=== PATIENT | female | born 1975 | race Asian ===

== ENCOUNTER 2021-11-15 20:59 | Emergency (ER) | payer OTHER ==
[~2021-11-15] VITALS: Ht 152.4 cm; Wt 63.5 kg
[2021-11-15 22:33] LABS: BASOPHILS ABSOLUTE AUTO 0.03 K/mm3 (0.00-0.23); BASOPHILS PERCENT AUTO 0 % (0-2); EOSINOPHILS ABSOLUTE AUTO 0.03 K/mm3 (0.00-0.68); EOSINOPHILS PERCENT AUTO 0 % (0-6); Hematocrit 34.7 % (33.0-51.0); Hemoglobin 11.1 g/dL (11.5-16.0); IMMATURE GRAN ABSOLUTE AUTO 0.02 K/mm3 (0.00-0.10); IMMATURE GRAN PERCENT AUTO 0 % (0-1); LYMPHOCYTES ABSOLUTE AUTO 1.68 K/mm3 (0.84-5.20); LYMPHOCYTES PERCENT AUTO 21 % (21-46); MONOCYTES ABSOLUTE AUTO 0.57 K/mm3 (0.16-1.47); MONOCYTES PERCENT AUTO 7 % (4-13); Mean Corpuscular HGB 28.8 pg (26.0-34.0); Mean Corpuscular Volume 90 fL (80-100); Mean Platelet Volume 10.2 fL (9.1-12.4); NEUTROPHILS ABSOLUTE AUTO 5.52 K/mm3 (1.96-9.15); NEUTROPHILS PERCENT AUTO 70 % (41-73); Platelet Count 313 K/mm3 (150-400); RDW Standard Deviation 46.5 fL (35.1-46.3); Red Blood Cell Count 3.85 M/mm3 (3.80-5.20); White Blood Cell Count 7.85 K/mm3 (4.00-11.30)
[2021-11-15 22:52] LABS: Albumin/Globulin Ratio 1.1 (0.8-1.8); Bilirubin, Total 0.3 mg/dL (0.1-1.0); Bun/Creatinine Ratio 10.9 (12.0-20.0); Calcium, Blood 8.9 mg/dL (8.5-10.1); Creatinine, Blood 0.64 mg/dL (0.40-1.00); Globulin, Blood 3.5 g/dL (2.2-4.0); Potassium, Blood 3.6 mmol/L (3.5-5.5); Total Protein, Blood 7.5 g/dL (6.4-8.2)
== END 2021-11-16 00:47 | disposition home or self-care (01) ==
LOC: ER 20:59
PROVIDERS: Student in an Organized Health Care Education/Training Program
DX: R51.9 Headache, unspecified (principal); R07.9 Chest pain, unspecified; R20.8 Other disturbances of skin sensation; I10 Essential (primary) hypertension; Z60.9 Problem related to social environment, unspecified
CPT/HCPCS: 70450; 71045; 80053; 84484; 85025; 93005; 93010; J1200; J1885; J2765; J7030

== ENCOUNTER → 2022-12-19 | Outpatient (CLI) | payer OTHER ==
[2022-12-19 19:51] LABS: BASOPHILS ABSOLUTE AUTO 0.03 K/mm3 (0.00-0.23); BASOPHILS PERCENT AUTO 0 % (0-2); EOSINOPHILS ABSOLUTE AUTO 0.03 K/mm3 (0.00-0.68); EOSINOPHILS PERCENT AUTO 0 % (0-6); Hematocrit 37.3 % (33.0-51.0); Hemoglobin 12.5 g/dL (11.5-16.0); IMMATURE GRAN ABSOLUTE AUTO 0.04 K/mm3 (0.00-0.10); IMMATURE GRAN PERCENT AUTO 0 % (0-1); LYMPHOCYTES ABSOLUTE AUTO 1.85 K/mm3 (0.84-5.20); LYMPHOCYTES PERCENT AUTO 18 % (21-46); MONOCYTES ABSOLUTE AUTO 0.77 K/mm3 (0.16-1.47); MONOCYTES PERCENT AUTO 7 % (4-13); Mean Corpuscular HGB 29.7 pg (26.0-34.0); Mean Corpuscular HGB Conc 33.5 g/dL (31.5-36.5); Mean Corpuscular Volume 89 fL (80-100); Mean Platelet Volume 10.2 fL (9.1-12.4); NEUTROPHILS ABSOLUTE AUTO 7.74 K/mm3 (1.96-9.15); NEUTROPHILS PERCENT AUTO 74 % (41-73); Platelet Count 347 K/mm3 (150-400); RDW Coefficient Variation 13.8 % (11.7-14.2); RDW Standard Deviation 44.9 fL (35.1-46.3); Red Blood Cell Count 4.21 M/mm3 (3.80-5.20); White Blood Cell Count 10.46 K/mm3 (4.00-11.30)
[2022-12-19 20:09] LABS: Albumin/Globulin Ratio 0.9 (0.8-1.8); Bilirubin, Total 0.4 mg/dL (0.1-1.0); Bun/Creatinine Ratio 8.1 (12.0-20.0); Calcium, Blood 9.4 mg/dL (8.5-10.1); Creatinine, Blood 0.75 mg/dL (0.40-1.00); Globulin, Blood 4.3 g/dL (2.2-4.0); Potassium, Blood 4.1 mmol/L (3.5-5.5); Total Protein, Blood 8.3 g/dL (6.4-8.2)
== END ==
LOC: LAB 19:27 → LAB SHORT 19:27
PROVIDERS: Physician Assistant
DX: R11.10 Vomiting, unspecified (principal)
CPT/HCPCS: 80053; 83690; 85025

== ENCOUNTER 2023-02-07 15:58 | Inpatient (IN) | payer BC ==
[~2023-02-07] VITALS: Ht 170.2 cm; Wt 65.5 kg
[2023-02-07] MEDS ORDERED: PROP10 PO (16:07)
[2023-02-07] MEDS ORDERED: AMLODIPINE BESYL5 MG PO (16:07)
[2023-02-07 16:28] LABS: BASOPHILS ABSOLUTE AUTO 0.02 K/mm3 (0.00-0.23); BASOPHILS PERCENT AUTO 0 % (0-2); EOSINOPHILS ABSOLUTE AUTO 0.03 K/mm3 (0.00-0.68); EOSINOPHILS PERCENT AUTO 0 % (0-6); Hematocrit 33.6 % (33.0-51.0); Hemoglobin 12.3 g/dL (11.5-16.0); IMMATURE GRAN ABSOLUTE AUTO 0.11 K/mm3 (0.00-0.10); IMMATURE GRAN PERCENT AUTO 1 % (0-1); LYMPHOCYTES ABSOLUTE AUTO 2.61 K/mm3 (0.84-5.20); LYMPHOCYTES PERCENT AUTO 18 % (21-46); MONOCYTES PERCENT AUTO 9 % (4-13); Mean Corpuscular HGB 29.3 pg (26.0-34.0); Mean Corpuscular HGB Conc 36.6 g/dL (31.5-36.5); Mean Corpuscular Volume 80 fL (80-100); Mean Platelet Volume 9.3 fL (9.1-12.4); NEUTROPHILS PERCENT AUTO 72 % (41-73); Platelet Count 436 K/mm3 (150-400); RDW Coefficient Variation 12.3 % (11.7-14.2); RDW Standard Deviation 35.5 fL (35.1-46.3); White Blood Cell Count 14.67 K/mm3 (4.00-11.30)
[2023-02-07 17:12] LABS: Albumin, Blood 4.4 g/dL (3.4-5.0); Albumin/Globulin Ratio 1.2 (0.8-1.8); Bilirubin, Total 0.7 mg/dL (0.1-1.0); Calcium, Blood 8.8 mg/dL (8.5-10.1); Creatinine, Blood 0.45 mg/dL (0.40-1.00); Globulin, Blood 3.7 g/dL (2.2-4.0); Total Protein, Blood 8.1 g/dL (6.4-8.2)
[2023-02-07 18:45] LABS: Base Excess Venous -4.2 mmol/L; Bicarbonate Venous 21.9 mmol/L (24.0-30.0); PCO2 Venous 27.2 mmHg (38-42); pH Blood Venous 7.46 (7.34-7.37)
[2023-02-07 18:45] LABS: Source, Urine Clean Catch
[2023-02-07 18:52] LABS: Appearance, Urine Clear (Clear); Bilirubin, Urine Neg (Neg); Blood, Urine Neg (Neg); Glucose Qualitative, Urine Neg (Neg); Ketones, Urine 2+ (Neg); Leukocyte Esterase, Urine Neg (Neg); Nitrite, Urine Neg (Neg); Protein, Urine Neg (Neg); Urobilinogen, Urine NORM (Normal)
[2023-02-07 18:55] LABS: Color, Urine Pale Yellow (P-Yellow)
[2023-02-07 19:14] LABS: Thyroid Stimulating Hormone 0.616 uIU/mL (0.360-4.800)
[2023-02-07 21:00] VITALS: BP 129/81
[2023-02-07 21:15] VITALS: BP 134/82
[2023-02-07 22:00] VITALS: BP 122/74
[2023-02-07 22:45] VITALS: BP 145/94
[2023-02-07 23:00] VITALS: BP 132/87
[2023-02-07 23:30] VITALS: BP 148/91
--- NOTE | 2023-02-07 23:30 | NUR ---
ARRIVAL TO ICU PT ARRIVED TO ICU 3 AT 2044 VIA ED BED. SHE WAS ABLE TO AMBULATE WITH MINIMAL ASSISTANCE OVER TO ICU BED. SHE IS BEING ADMITTED FOR HYPONATREMIA. SHE IS A/O X4 AND ABLE TO MAKE HER NEEDS KNOWN; VERY PLESENT. SPO2 >98% ON RA; NO C/O DYSPNEA. HR 60-70'S, NO C/O CHEST PAIN. SBP 120-150'S. MILD NAUSEA NOTED, NO EMESIS. SHE CAN AMBULATE TO THE TOILET WITH MINIMAL ASSISTANCE, ONE PERSON STANDBY FOR CORD MANAGEMENT. KCL INFUSING WHEN SHE ARRIVED AND SHE C/O PIV BURNING, LT WRIST PIV PAINFUL WHEN FLUSHED, THIS IV PULLED AND POWERGLIDE PLACED BY CHARGE NURSE. 3% NS INFUSING AT 20ML/HR. SEE ADMISSION ASSESSMENT FOR FULL ASSESSMENT.
[2023-02-08] VITALS (18 sets, daily range): BP systolic 112–150; BP diastolic 66–124
[2023-02-08 01:27] LABS: Potassium, Blood 3.5 mmol/L (3.5-5.5)
--- NOTE | 2023-02-08 01:39 | NUR ---
UPDATE 0100 SODIUM LAB DRAW RESULTED AT 135; LAST SODIUM BLOOD DRAW WAS AT 1836 AND RESULTED A SODIUM OF 118. CALL MADE TO DR MARTINES REGARDING THIS QUICK CHANGE IN SODIUM. NEW ORDERS TO STOP 3% SALINE, INFUSION STOPPED AT 0135. KCL ALSO DONE INFUSING. PT IS SALINE LOCKED. PT HAS URINATED SEVERAL TIMES BUT HAS NOT HAD ANY PO FLUID. VITALS STABLE WITH HR 60'S, BP STABLE, SPO2 100% ON RA. PT SLEEPING IN BED AND COMFORTABLE, SHE WAKES EASILY TO VERBAL STIMULI. SHE IS ASYMPTOMATIC. NEXT LAB DRAW AT 0500.
[2023-02-08 05:24] LABS: BASOPHILS ABSOLUTE AUTO 0.01 K/mm3 (0.00-0.23); BASOPHILS PERCENT AUTO 0 % (0-2); EOSINOPHILS ABSOLUTE AUTO 0.03 K/mm3 (0.00-0.68); EOSINOPHILS PERCENT AUTO 0 % (0-6); Hematocrit 31.6 % (33.0-51.0); Hemoglobin 11.1 g/dL (11.5-16.0); IMMATURE GRAN ABSOLUTE AUTO 0.04 K/mm3 (0.00-0.10); IMMATURE GRAN PERCENT AUTO 1 % (0-1); LYMPHOCYTES PERCENT AUTO 23 % (21-46); MONOCYTES ABSOLUTE AUTO 1.06 K/mm3 (0.16-1.47); MONOCYTES PERCENT AUTO 13 % (4-13); Mean Corpuscular HGB 29.4 pg (26.0-34.0); Mean Corpuscular HGB Conc 35.1 g/dL (31.5-36.5); Mean Corpuscular Volume 84 fL (80-100); Mean Platelet Volume 9.6 fL (9.1-12.4); NEUTROPHILS ABSOLUTE AUTO 5.37 K/mm3 (1.96-9.15); NEUTROPHILS PERCENT AUTO 64 % (41-73); Platelet Count 331 K/mm3 (150-400); RDW Coefficient Variation 12.8 % (11.7-14.2); RDW Standard Deviation 38.6 fL (35.1-46.3); Red Blood Cell Count 3.77 M/mm3 (3.80-5.20); White Blood Cell Count 8.41 K/mm3 (4.00-11.30)
[2023-02-08 05:43] LABS: Albumin, Blood 3.6 g/dL (3.4-5.0); Albumin/Globulin Ratio 1.1 (0.8-1.8); Bilirubin, Total 0.5 mg/dL (0.1-1.0); Bun/Creatinine Ratio 8.6 (12.0-20.0); Calcium, Blood 8.1 mg/dL (8.5-10.1); Creatinine, Blood 0.58 mg/dL (0.40-1.00); Globulin, Blood 3.2 g/dL (2.2-4.0); Potassium, Blood 3.2 mmol/L (3.5-5.5); Total Protein, Blood 6.8 g/dL (6.4-8.2)
--- NOTE | 2023-02-08 06:30 | NUR ---
END OF SHIFT SUMMARY NO ACUTE EVENTS OVER NIGHT. SHE WAS ABLE TO SLEEP A FEW HOURS LAST NIGHT. CONT TO BE A/O X4 AND ABLE TO MAKE HER NEEDS KNOWN. SPO2 >98% ON RA, NO C/O DYSPNEA. AFEBILE. HR 50-60'S, NO C/O CHEST PAIN. BP STABLE. NO SEIZURE ACTIVITY. SHE CAN INDEPENDENTLY AMBULATE TO BATHROOM IN ROOM. SALINE LOCKED RIGHT NOW. CALL MADE TO DR BOBBI MCCLURE 0500 POTASSIUM LAB RESULT OF 3.3; NEW ORDERS PROVIDED. WILL REPORT TO AM RN WHEN AVIALBLE.
--- NOTE | 2023-02-08 09:00 | NUR ---
INITIAL ASSESSMENT PATIENT ALERT AND ORIENTED X 4, AFEBRILE. PATIENT DENIES PAIN. PATIENT SATTING 90% AND GREATER ON RA. PATIENT IN SR, HR IN THE 80S. SBP IN THE 140S. SCHEDULED AM BP MED GIVEN. PATIENT DENIES NAUSEA. LAST BM DOCUMENTED ON 02/06. WNL. SKIN APPEARS C/D/I. IV FLUSHED AND SALINE LOCKED. 40 MEQ KCL INFUSING FOR POTASSIUM OF 3.2 THIS AM. LAST SODIUM 135. BED LOW, CALL LIGHT IN REACH. WILL CONTINUE TO MONITOR PATIENT FREQUENTLY THROUGHOUT SHIFT.
--- NOTE | 2023-02-08 09:00 | NUR ---
IGNITION RISK ASSESSED. HOURLY ROUNDING BEING PERFORMED. PATIENT STATES SHE DOES NOT SMOKE AND DOES NOT HAVE A DBA DEVELOPER.
--- NOTE | 2023-02-08 11:29 | NUR ---
UPDATE GIVEN TO PATIENT'S AFTER ASKING FOR APPROVAL FROM PATIENT.
--- NOTE | 2023-02-08 11:35 | NUR ---
DR. RUANO IN TO SEE PATIENT.
--- NOTE | 2023-02-08 12:30 | NUR ---
PATIENT AFEBRILE. HR IN THE 70S. SBP IN THE 120S. PATIENT REMAINS SATTING 90% AND GREATER ON RA. D5 INFUSING AT 100 MLS/ HOUR. NO OTHER ACUTE CHANGES TO NOTE ON AT THIS TIME. NO COMPLAINTS AT THIS TIME. WILL CONTINUE TO MONITOR.
--- NOTE | 2023-02-08 15:25 | NUR ---
CALLED TO GIVE ASSUMING NURSE REPORT. WAITING FOR CALL BACK.
--- NOTE | 2023-02-08 15:41 | NUR ---
SHIFT SUMMARY PATIENT HAS REMAINED ALERT AND ORIENTED X 4, AFEBRILE. PATIENT GIVEN OT GI COCKTAIL FOR COMPLAINT OF HEART BURN. NO OTHER COMPLAINTS OF PAIN OR DISCOMFORT THIS SHIFT. PATIENT HAS REMAINED SATTING 90% AND GREATER ON RA. LUNGS HAVE REMAINED CLEAR. PATIENT HAS REMAINED SR, HR 70S TO 90S. SBP 120S TO 140S. PATIENT HAD NO COMPLAINTS OF PAIN THIS SHIFT. 1 BM THIS SHIFT. PATIENT TOLERATED FOOD WELL. WNL. SKIN WNL. PATIENT REPOSITIONING SELF IN BED. D5 WITH KCL INFUSING AT 125 MLS/ HOUR X 2 L. PATIENT HAD 40 MEQ KCL REPLACEMENT THIS AM. PATIENT HAD SHOWER THIS SHIFT. DR. RUANO CONSULTED AND CAME TO SEE PATIENT THIS SHIFT. PATIENT TO BE TRANSFERRED TO MEDICAL FLOOR, ROOM 359 SHORTLY.
--- NOTE | 2023-02-08 15:47 | NUR ---
CALLED TO GIVE REPORT. WAITING FOR ASSUMING NURSE TO CALL BACK.
--- NOTE | 2023-02-08 16:14 | NUR ---
PATIENT TRANSFERRED TO MEDICAL FLOOR. ALL BELONGINGS SENT WITH PATIENT. TRANSFER COMPLETE.
[2023-02-09 05:01] VITALS: BP 138/80
[2023-02-09 05:28] LABS: BASOPHILS ABSOLUTE AUTO 0.03 K/mm3 (0.00-0.23); BASOPHILS PERCENT AUTO 0 % (0-2); EOSINOPHILS ABSOLUTE AUTO 0.15 K/mm3 (0.00-0.68); EOSINOPHILS PERCENT AUTO 2 % (0-6); Hematocrit 32.2 % (33.0-51.0); Hemoglobin 10.9 g/dL (11.5-16.0); IMMATURE GRAN ABSOLUTE AUTO 0.04 K/mm3 (0.00-0.10); IMMATURE GRAN PERCENT AUTO 1 % (0-1); LYMPHOCYTES ABSOLUTE AUTO 2.24 K/mm3 (0.84-5.20); LYMPHOCYTES PERCENT AUTO 30 % (21-46); MONOCYTES ABSOLUTE AUTO 0.93 K/mm3 (0.16-1.47); MONOCYTES PERCENT AUTO 13 % (4-13); Mean Corpuscular HGB 29.5 pg (26.0-34.0); Mean Corpuscular HGB Conc 33.9 g/dL (31.5-36.5); Mean Corpuscular Volume 87 fL (80-100); Mean Platelet Volume 10.2 fL (9.1-12.4); NEUTROPHILS ABSOLUTE AUTO 4.04 K/mm3 (1.96-9.15); NEUTROPHILS PERCENT AUTO 55 % (41-73); Platelet Count 270 K/mm3 (150-400); RDW Coefficient Variation 13.5 % (11.7-14.2); RDW Standard Deviation 42.5 fL (35.1-46.3); White Blood Cell Count 7.43 K/mm3 (4.00-11.30)
--- NOTE | 2023-02-09 05:31 | NUR ---
SHIFT SUMMERY, PT RESTING IN BED AND WAS AT START OF SHIFT PT WATCHING TV. IV SOUNDING OCCUSION PT HAD IV TO HER RIGHT AC. PT BENT ARM A FEW MORE TIMES THEN STATED SHE DID NOT WANT THE IVF DUE TO THE DEXTROSE, SHE WAS VERY CONCERNED IT WOULD MAKE HER FAT BECOUSE OF THE SUGAR, TOLD PT IT HAD VERY LITTLE SUGAR IN BAG, PT STILL VERY CONCERNED PT C/O PAIN TO IV TO RIGHT AC CHANGED SITES THINKING THE POTASSIUM MIGHT BE BURNING, SITE WAS NOT RED NOT SWOLEN NOT IRRITATED LOOKING, MOVED TO POWER GLIDE TO LEFT ARM. PT CALLED BACK LATTER STATED IV WAS PAINFULL AND SHE WUOLD NOT BE ABLE TO SLEEP WITH IT IN. IV REMOVED TIP INTACT. SUGESTED WARM PACK FOR PAIN PT REFUSED. LAB CAME AND WNTED A LAB DRAWN PT NOT HAPPY ABOUT MORE LABS EVEN DRAWN FROM POWER GLIDE. PT REATING MOST OF NIGHT LABS DRAWN FROM POWER GLIDE. CALL LIGHT IN REACH. FIRE SAFETY REVIEWED.
[2023-02-09 05:49] LABS: Albumin, Blood 3.2 g/dL (3.4-5.0); Anion Gap 4 mmol/L (6-16); Blood Urea Nitrogen 4 mg/dL (8-24); Bun/Creatinine Ratio 6.1 (12.0-20.0); CO2, Blood 24 mmol/L (21-32); Chloride, Blood 108 mmol/L (98-108); Creatinine, Blood 0.65 mg/dL (0.40-1.00); Glomerular Filtration Rate 110 (60-); Glucose, Blood 104 mg/dL (70-99); Magnesium, Blood 2.2 mg/dL (1.6-2.4); Phosphorus, Blood 2.7 mg/dL (2.5-4.9); Potassium, Blood 4.9 mmol/L (3.5-5.5); Sodium, Blood 136 mmol/L (136-145)
[2023-02-09 07:49] VITALS: BP 144/90
[2023-02-09] MEDS ORDERED: AMLO5 PO (15:56)
--- NOTE | 2023-02-09 16:52 | NUR ---
SHIFT/DISCHARGE SUMMARY: Pt remained A&O x3 this shift. VSS, denies pain. Ambulating independently. Tolerating diet. Voiding without difficulty. All discharge instructions reviewed with hemodialysis charge nurseCATALINA Love. Return verbal understanding provided. Pt to lobby.
== END 2023-02-09 16:10 | disposition home or self-care (01) | DRG 641 ==
LOC: ER 15:58 → MEDS 18:49 → PCU 18:49 → MEDS 18:49 → ICUE 18:49 → MEDS 02-08 16:26
PROVIDERS: Hospitalist; Internal Medicine; Nurse Practitioner Acute Care; Physician Assistant; Student in an Organized Health Care Education/Training Program; ADMIT Hospitalist
DX: E87.1 Hypo-osmolality and hyponatremia (principal); E87.6 Hypokalemia; I10 Essential (primary) hypertension; F41.9 Anxiety disorder, unspecified; D72.828 Other elevated white blood cell count; K21.9 Gastro-esophageal reflux disease without esophagitis; F41.0 Panic disorder [episodic paroxysmal anxiety]; Z79.899 Other long term (current) drug therapy
CPT/HCPCS: 71046; 74177; 80053; 80069; 81003; 82803; 83690; 83735; 83930; 83935; 84100; 84132; 84295; 84300; 84443; 84484; 85025; 93005; 93010; 96374-59; 96375; 99285-25; A9270; C1751; J1650; J1885; J2405; J3480; J7030; J7050; J7060; J7070; Q9967

== ENCOUNTER → 2023-04-29 | Outpatient (CLI) | payer BC ==
[~2023-04-29] MED LIST: AMLO5 PO; AMLODIPINE BESYL5 MG PO; PROP10 PO
[2023-04-29 14:12] LABS: Sodium, Urine 81 mmol/L (20-110)
== END | disposition home or self-care (01) ==
LOC: LAB SHORT 08:30 → LAB 08:30
PROVIDERS: Physician Assistant
DX: E87.1 Hypo-osmolality and hyponatremia (principal)
CPT/HCPCS: 81050; 84300

== ENCOUNTER 2023-05-23 22:42 | Emergency (ER) | payer BC ==
[~2023-05-23] VITALS: Ht 152.4 cm; Wt 63.5 kg
[2023-05-23 23:09] LABS: BASOPHILS ABSOLUTE AUTO 0.01 K/mm3 (0.00-0.23); BASOPHILS PERCENT AUTO 0 % (0-2); EOSINOPHILS ABSOLUTE AUTO 0.04 K/mm3 (0.00-0.68); EOSINOPHILS PERCENT AUTO 0 % (0-6); Hemoglobin 11.7 g/dL (11.5-16.0); IMMATURE GRAN ABSOLUTE AUTO 0.02 K/mm3 (0.00-0.10); IMMATURE GRAN PERCENT AUTO 0 % (0-1); LYMPHOCYTES ABSOLUTE AUTO 1.98 K/mm3 (0.84-5.20); LYMPHOCYTES PERCENT AUTO 21 % (21-46); MONOCYTES ABSOLUTE AUTO 0.52 K/mm3 (0.16-1.47); MONOCYTES PERCENT AUTO 5 % (4-13); Mean Corpuscular HGB 28.2 pg (26.0-34.0); Mean Corpuscular HGB Conc 34.4 g/dL (31.5-36.5); Mean Corpuscular Volume 82 fL (80-100); Mean Platelet Volume 9.6 fL (9.1-12.4); NEUTROPHILS ABSOLUTE AUTO 7.07 K/mm3 (1.96-9.15); NEUTROPHILS PERCENT AUTO 73 % (41-73); Platelet Count 384 K/mm3 (150-400); RDW Coefficient Variation 14.3 % (11.7-14.2); RDW Standard Deviation 42.3 fL (35.1-46.3); Red Blood Cell Count 4.15 M/mm3 (3.80-5.20); White Blood Cell Count 9.64 K/mm3 (4.00-11.30)
[2023-05-23 23:31] LABS: Albumin, Blood 3.9 g/dL (3.4-5.0); Albumin/Globulin Ratio 0.9 (0.8-1.8); Bilirubin, Total 0.6 mg/dL (0.1-1.0); Bun/Creatinine Ratio 8.5 (12.0-20.0); Calcium, Blood 8.6 mg/dL (8.5-10.1); Creatinine, Blood 0.59 mg/dL (0.40-1.00); Globulin, Blood 4.5 g/dL (2.2-4.0); Potassium, Blood 3.3 mmol/L (3.5-5.5); Total Protein, Blood 8.4 g/dL (6.4-8.2)
[2023-05-24 00:43] LABS: Source, Urine Clean Catch
[2023-05-24 00:47] LABS: Bilirubin, Urine Neg (Neg); Blood, Urine Neg (Neg); Glucose Qualitative, Urine Neg (Neg); Ketones, Urine Neg (Neg); Leukocyte Esterase, Urine Neg (Neg); Nitrite, Urine Neg (Neg); Protein, Urine Neg (Neg); Urobilinogen, Urine NORM (Normal); pH, Urine 6.5 (5.0-8.0)
[2023-05-24 00:49] LABS: Appearance, Urine Clear (Clear); Color, Urine Yellow (P-Yellow)
[2023-05-24 01:03] LABS: U Amphetamine Screen Not Detected; U Barbituate Screen Not Detected; U Benzodiazapine Screen Not Detected; U Buprenorphine Screen Not Detected; U Cannabinoids Screen Not Detected; U Cocaine Screen Not Detected; U Methadone Screen Not Detected; U Methamphetamine Screen Not Detected; U Opiates Screen Not Detected; U Oxycodone Screen Not Detected; U Phencyclidine Screen Not Detected
[2023-05-24] MEDS ORDERED: ONDA4ODT MM (01:10)
[2023-05-24 01:37] VITALS: BP 142/82
== END 2023-05-24 01:36 | disposition home or self-care (01) ==
LOC: ER 22:42
PROVIDERS: Emergency Medicine
DX: R11.2 Nausea with vomiting, unspecified (principal); F41.9 Anxiety disorder, unspecified; Z79.899 Other long term (current) drug therapy
CPT/HCPCS: 80053; 81003; 81025; 83605; 83690; 83735; 85025; 96361; 96374; 96375; 99283-25; J1885; J2405; J7030

== ENCOUNTER 2024-05-22 06:58 | Observation (INO) | payer OTHER ==
[~2024-05-22] VITALS: Ht 152.4 cm; Wt 64.6 kg
[~2024-05-22 06:58] MED LIST changes: +ONDA4ODT MM
[2024-05-22] MEDS ORDERED: Ketorolac Tromethamine 30mg Vial IV ONE (07:25)
[2024-05-22] MEDS ORDERED: NS 1,000 ML IV SCH ×2 (07:25→09:30)
[2024-05-22] MEDS ORDERED: Ondansetron HCl 2 MG / ML 2ML Vial IV ONE (07:25)
[2024-05-22 07:58] LABS: BASOPHILS ABSOLUTE AUTO 0.01 K/mm3 (0.00-0.23); BASOPHILS PERCENT AUTO 0 % (0-2); EOSINOPHILS ABSOLUTE AUTO 0.01 K/mm3 (0.00-0.68); EOSINOPHILS PERCENT AUTO 0 % (0-6); Hematocrit 31.1 % (33.0-51.0); Hemoglobin 10.9 g/dL (11.5-16.0); IMMATURE GRAN ABSOLUTE AUTO 0.02 K/mm3 (0.00-0.10); IMMATURE GRAN PERCENT AUTO 0 % (0-1); LYMPHOCYTES ABSOLUTE AUTO 1.17 K/mm3 (0.84-5.20); LYMPHOCYTES PERCENT AUTO 20 % (21-46); MONOCYTES ABSOLUTE AUTO 0.39 K/mm3 (0.16-1.47); MONOCYTES PERCENT AUTO 7 % (4-13); Mean Corpuscular HGB 29.1 pg (26.0-34.0); Mean Corpuscular Volume 83 fL (80-100); Mean Platelet Volume 10.2 fL (9.1-12.4); NEUTROPHILS ABSOLUTE AUTO 4.22 K/mm3 (1.96-9.15); NEUTROPHILS PERCENT AUTO 73 % (41-73); Platelet Count 311 K/mm3 (150-400); RDW Coefficient Variation 13.2 % (11.7-14.2); RDW Standard Deviation 39.8 fL (35.1-46.3); Red Blood Cell Count 3.75 M/mm3 (3.80-5.20); White Blood Cell Count 5.82 K/mm3 (4.00-11.30)
[2024-05-22 08:26] LABS: Albumin, Blood 3.6 g/dL (3.4-5.0); Albumin/Globulin Ratio 0.9 (0.8-1.8); Bilirubin, Total 0.8 mg/dL (0.1-1.0); Bun/Creatinine Ratio 14.2 (12.0-20.0); Calcium, Blood 8.6 mg/dL (8.5-10.1); Creatinine, Blood 0.35 mg/dL (0.40-1.00); Globulin, Blood 3.8 g/dL (2.2-4.0); Total Protein, Blood 7.4 g/dL (6.4-8.2)
[2024-05-22 08:46] LABS: Influenza A, PCR NEGATIVE (NEGATIVE); Influenza B, PCR NEGATIVE (NEGATIVE); Resp Syncytial Virus, PCR NEGATIVE (NEGATIVE); SARS-Cov-2 (COVID-19) PCR, MMC NEGATIVE (NEGATIVE)
[2024-05-22 09:08] LABS: Source, Urine Clean Catch
[2024-05-22 09:27] LABS: Free Thyroxine 1.17 ng/dL (0.70-1.60)
[2024-05-22 09:27] LABS: Appearance, Urine Clear (Clear); Bilirubin, Urine Neg (Neg); Blood, Urine Neg (Neg); Glucose Qualitative, Urine Neg (Neg); Ketones, Urine Neg (Neg); Leukocyte Esterase, Urine Neg (Neg); Nitrite, Urine Neg (Neg); Protein, Urine Neg (Neg); Urobilinogen, Urine NORM (Normal)
[2024-05-22 09:28] LABS: Color, Urine Pale Yellow (P-Yellow)
[2024-05-22 09:29] LABS: Thyroid Stimulating Hormone 0.697 uIU/mL (0.360-4.800)
[2024-05-22] MEDS ORDERED: FLU VACC TS2024-25(6MOS UP)/PF 45 MCG/0.5 ML SYRINGE IM SCH (09:30)
[2024-05-22] MEDS ORDERED: Acetaminophen 325 MG TABLET PO PRN (11:30)
[2024-05-22] MEDS ORDERED: Ondansetron HCl 2 MG / ML 2ML Vial IV PRN (11:55)
[2024-05-22 14:40] VITALS: BP 151/80
--- NOTE | 2024-05-22 19:32 | NUR ---
ARRIVAL TO [address] BROUGHT UP TO THE FLOOR JUST BEFORE SHIFT CHANGE ON A GURNEY, SLID TO HER BED VIA SLIDER SHEET, SHE IS A/O X4, VSS, DISCUSSED PLAN FOR THE EVENING AND SHIFT CHANGE HAPPENING SOON. PT AGREEABLE TO PLAN
--- NOTE | 2024-05-22 19:34 | NUR ---
SHIFT SUMMARY PT ADMITTED FOR HYPONATREMIA, A/OX4, VSS, TOLERATING PO, TELEMETRY IN PLACE, PT REPORTS CHRONIC PAIN L SIDE OF HER HEAD AND UPPER BODY. NO OTHER COMLAINTS THIS SHIFT. CALL LIGHT IN REACH.
[2024-05-22 19:41] VITALS: BP 139/89
[2024-05-23 03:30] VITALS: BP 139/72
[2024-05-23 04:33] LABS: BASOPHILS ABSOLUTE AUTO 0.03 K/mm3 (0.00-0.23); BASOPHILS PERCENT AUTO 1 % (0-2); EOSINOPHILS ABSOLUTE AUTO 0.08 K/mm3 (0.00-0.68); EOSINOPHILS PERCENT AUTO 1 % (0-6); Hematocrit 30.2 % (33.0-51.0); Hemoglobin 10.3 g/dL (11.5-16.0); IMMATURE GRAN ABSOLUTE AUTO 0.02 K/mm3 (0.00-0.10); IMMATURE GRAN PERCENT AUTO 0 % (0-1); LYMPHOCYTES ABSOLUTE AUTO 2.48 K/mm3 (0.84-5.20); LYMPHOCYTES PERCENT AUTO 41 % (21-46); MONOCYTES ABSOLUTE AUTO 0.48 K/mm3 (0.16-1.47); MONOCYTES PERCENT AUTO 8 % (4-13); Mean Corpuscular HGB 29.6 pg (26.0-34.0); Mean Corpuscular HGB Conc 34.1 g/dL (31.5-36.5); Mean Corpuscular Volume 87 fL (80-100); Mean Platelet Volume 9.8 fL (9.1-12.4); NEUTROPHILS ABSOLUTE AUTO 3.02 K/mm3 (1.96-9.15); NEUTROPHILS PERCENT AUTO 49 % (41-73); Platelet Count 311 K/mm3 (150-400); RDW Coefficient Variation 13.6 % (11.7-14.2); RDW Standard Deviation 42.7 fL (35.1-46.3); Red Blood Cell Count 3.48 M/mm3 (3.80-5.20); White Blood Cell Count 6.11 K/mm3 (4.00-11.30)
[2024-05-23 04:56] LABS: Bun/Creatinine Ratio 11.4 (12.0-20.0); Calcium, Blood 7.7 mg/dL (8.5-10.1); Creatinine, Blood 0.62 mg/dL (0.40-1.00); Potassium, Blood 3.4 mmol/L (3.5-5.5)
[2024-05-23] MEDS ORDERED: Pantoprazole Sodium 40 MG Injection IV SCH (06:00)
--- NOTE | 2024-05-23 06:41 | NUR ---
SHIFT SUMMARY NOC. PT A/OX4, PT ADMIT FOR HYPONATREMIA. PT REPORTS HEADACHE BUT STATES IS TOLERABLE AND DECLINED PAIN MEDICATION. TELEMETRY INTACT WITH NO REPORTED EVENTS. PT VOIDING URINE AND TOLERATING CLEAR LIQUID DIET. BED IN LOWEST POSITION, CALL LIGHT IN REACH.
[2024-05-23 07:35] VITALS: BP 122/74
[2024-05-23] MEDS ORDERED: Enoxaparin 40 MG/0.4 ML SYR SC SCH (09:00)
[2024-05-23] MEDS ORDERED: AmLODIPine Besylate 5 MG Tab PO SCH (09:00)
--- NOTE | 2024-05-23 12:30 | NUR ---
PT EXPRESSED CONCERNS THE THIS RN REGARDING CURRENT DOMESTIC SITUATION. PT REPORTS THAT HER CONTROLS HER HEALTH INSURANCE AND CONTROLS HER MONETARILY. PT DECLINED ASSISTANCE AT THIS TIME. SHE DID ASK FOR NO VISITORS AND ASKED STAFF TO NOT SHARE HEALTH INFORMATION WITH HER SPOUSE BUT REQUESTED THAT WE CALL HIM FOR HEALTH INSURANCE INFORMATION. DEVELOPING MACHINE OPERATOR NOTIFIED. MERT ARNOLD FROM CARE MANAGEMENT NOTIFIED OF PT CONCERNS, CARE MANAGEMENT TEAM TO REACH OUT TO HER SPOUSE REGARDING HEALTH INSURANCE INFORMATION.
[2024-05-23 14:42] VITALS: BP 137/97
[2024-05-23 17:05] VITALS: BP 139/83
--- NOTE | 2024-05-23 19:03 | NUR ---
DISCHARGE PT PROVIDED WITH WRITTEN AND VERBAL DISCHARGE INSTRUCTIONS AT 1705, SHE REPORTED UNDERSTANDING. VSS AT THAT TIME. PT ATTEMPTED TO CALL HER MULTIPLE TIMES FOR HIM TO PICK HER UP. SHE REQUESTED THAT THIS RN CALL HIM, HE WAS NOTIFIED THAT SHE WAS READY TO DISCHARGE AT 1800. PT'S FOUND WAITING IN WAITING AREA AT 1900 AND NOTIFIED THAT HIS WAS READY TO DISCHARGE HOME. PT DISCHARGED HOME WITH HER AT 1900.
== END 2024-05-23 19:01 | disposition home or self-care (01) ==
LOC: ER 06:58 → SURS 06:59 → ER 09:26 → SURS 09:26 → MEDS 09:26 → SURS 13:38
PROVIDERS: Emergency Medicine; ADMIT Family Medicine
DX: E87.1 Hypo-osmolality and hyponatremia (principal); R11.2 Nausea with vomiting, unspecified; I10 Essential (primary) hypertension; R51.9 Headache, unspecified; E86.0 Dehydration; D64.9 Anemia, unspecified; K21.9 Gastro-esophageal reflux disease without esophagitis; Z72.0 Tobacco use; Z79.899 Other long term (current) drug therapy; Z88.0 Allergy status to penicillin
CPT/HCPCS: 0241U; 36415; 80048; 80053; 81003; 83690; 83930; 84295; 84439; 84443; 85025; 96361; 96374; 96375; 99284-25; A9270; G0378; J1650; J1885; J2405; J2470; J7030

== ENCOUNTER 2024-06-16 00:17 | Emergency (ER) | payer OTHER ==
[~2024-06-16] VITALS: Ht 152.4 cm; Wt 63.5 kg
[2024-06-16] MEDS ORDERED: NS 1,000 ML IV SCH (02:05)
[2024-06-16] MEDS ORDERED: Famotidine 10 MG/ML 2ML Vial IV ONE (02:05)
[2024-06-16] MEDS ORDERED: Ondansetron HCl 2 MG / ML 2ML Vial IV ONE (02:05)
[2024-06-16 02:24] LABS: Albumin, Blood 3.8 g/dL (3.4-5.0); Bilirubin, Total 0.4 mg/dL (0.1-1.0); Creatinine, Blood 0.55 mg/dL (0.40-1.00); Globulin, Blood 3.7 g/dL (2.2-4.0); Potassium, Blood 3.3 mmol/L (3.5-5.5); Total Protein, Blood 7.5 g/dL (6.4-8.2)
[2024-06-16] MEDS ORDERED: Mag Hydrox/AL Hydrox/Simeth 30 ML UDC PO ONE (02:55)
[2024-06-16] MEDS ORDERED: Potassium Chloride 20 MEQ TabCR PO ONE (02:55)
[2024-06-16] MEDS ORDERED: Ketorolac Tromethamine 30mg Vial IV ONE (02:55)
[2024-06-16 03:02] LABS: Source, Urine Clean Catch
[2024-06-16 03:07] LABS: Bilirubin, Urine Neg (Neg); Blood, Urine Neg (Neg); Glucose Qualitative, Urine 2+ (Neg); Ketones, Urine 2+ (Neg); Leukocyte Esterase, Urine 1+ (Neg); Nitrite, Urine Pos (Neg); Protein, Urine 2+ (Neg); Urobilinogen, Urine 1+ (Normal)
[2024-06-16 03:24] LABS: Appearance, Urine Clear (Clear); Color, Urine Pale Yellow (P-Yellow)
[2024-06-16 03:25] LABS: Bacteria Mod /hpf; Red Blood Cells, Urine 0-2 /hpf (0-2); Squamous Epithelial Cells Many /hpf (Few); White Blood Cells, Urine 0-2 /hpf (0-5)
[2024-06-16 03:41] LABS: BASOPHILS ABSOLUTE AUTO 0.03 K/mm3 (0.00-0.23); BASOPHILS PERCENT AUTO 1 % (0-2); EOSINOPHILS ABSOLUTE AUTO 0.01 K/mm3 (0.00-0.68); EOSINOPHILS PERCENT AUTO 0 % (0-6); Hematocrit 35.2 % (33.0-51.0); Hemoglobin 11.5 g/dL (11.5-16.0); IMMATURE GRAN ABSOLUTE AUTO 0.01 K/mm3 (0.00-0.10); IMMATURE GRAN PERCENT AUTO 0 % (0-1); LYMPHOCYTES PERCENT AUTO 20 % (21-46); MONOCYTES ABSOLUTE AUTO 0.31 K/mm3 (0.16-1.47); MONOCYTES PERCENT AUTO 5 % (4-13); Mean Corpuscular HGB 29.5 pg (26.0-34.0); Mean Corpuscular HGB Conc 32.7 g/dL (31.5-36.5); Mean Corpuscular Volume 90 fL (80-100); Mean Platelet Volume 9.4 fL (9.1-12.4); NEUTROPHILS ABSOLUTE AUTO 4.88 K/mm3 (1.96-9.15); NEUTROPHILS PERCENT AUTO 75 % (41-73); Platelet Count 360 K/mm3 (150-400); RDW Coefficient Variation 13.6 % (11.7-14.2); RDW Standard Deviation 44.6 fL (35.1-46.3); White Blood Cell Count 6.54 K/mm3 (4.00-11.30)
[2024-06-16] MEDS ORDERED: CefTRIAXone Sodium 1,000 MG in NS 50 ML IV ONE (03:50)
[2024-06-16] MEDS ORDERED: CEPH500 PO (03:53)
[2024-06-16] MEDS ORDERED: ALMACONE SUSPE355 ML PO (03:53)
[2024-06-16] MEDS ORDERED: ONDA4ODT MM (03:53)
[2024-06-16 05:00] VITALS: BP 114/84
== END 2024-06-16 06:08 | disposition home or self-care (01) ==
LOC: ER 00:17
PROVIDERS: Emergency Medicine
DX: N39.0 Urinary tract infection, site not specified (principal); K21.9 Gastro-esophageal reflux disease without esophagitis; I10 Essential (primary) hypertension; Z79.899 Other long term (current) drug therapy; Z88.0 Allergy status to penicillin
CPT/HCPCS: 71046; 80053; 81001; 83605; 83690; 84703; 85025; 87081; 87086; 87430; 93005; 93010; 96361; 96365; 96375; 99284-25; A9270; J0696; J1885; J2405; J7030

== ENCOUNTER 2024-08-06 23:51 | Inpatient (IN) | payer OTHER ==
[~2024-08-06] VITALS: Ht 154.9 cm; Wt 66.9 kg
[~2024-08-06 23:51] MED LIST changes: +ALMACONE SUSPE355 ML PO; +CEPH500 PO
[2024-08-07 01:04] LABS: BASOPHILS ABSOLUTE AUTO 0.03 K/mm3 (0.00-0.23); BASOPHILS PERCENT AUTO 0 % (0-2); EOSINOPHILS ABSOLUTE AUTO 0.01 K/mm3 (0.00-0.68); EOSINOPHILS PERCENT AUTO 0 % (0-6); Hematocrit 37.3 % (33.0-51.0); Hemoglobin 12.5 g/dL (11.5-16.0); IMMATURE GRAN ABSOLUTE AUTO 0.06 K/mm3 (0.00-0.10); IMMATURE GRAN PERCENT AUTO 1 % (0-1); LYMPHOCYTES ABSOLUTE AUTO 1.54 K/mm3 (0.84-5.20); LYMPHOCYTES PERCENT AUTO 17 % (21-46); MONOCYTES ABSOLUTE AUTO 0.54 K/mm3 (0.16-1.47); MONOCYTES PERCENT AUTO 6 % (4-13); Mean Corpuscular HGB 28.8 pg (26.0-34.0); Mean Corpuscular HGB Conc 33.5 g/dL (31.5-36.5); Mean Corpuscular Volume 86 fL (80-100); Mean Platelet Volume 9.9 fL (9.1-12.4); NEUTROPHILS ABSOLUTE AUTO 6.82 K/mm3 (1.96-9.15); NEUTROPHILS PERCENT AUTO 76 % (41-73); Platelet Count 332 K/mm3 (150-400); RDW Coefficient Variation 13.4 % (11.7-14.2); Red Blood Cell Count 4.34 M/mm3 (3.80-5.20)
[2024-08-07 01:13] LABS: Source, Urine Voided
[2024-08-07 01:15] LABS: Bilirubin, Urine Neg (Neg); Blood, Urine Neg (Neg); Glucose Qualitative, Urine Neg (Neg); Ketones, Urine 2+ (Neg); Leukocyte Esterase, Urine Neg (Neg); Nitrite, Urine Neg (Neg); Protein, Urine Neg (Neg); Urobilinogen, Urine NORM (Normal)
[2024-08-07 01:22] LABS: Albumin, Blood 3.7 g/dL (3.4-5.0); Bilirubin, Total 0.6 mg/dL (0.1-1.0); Bun/Creatinine Ratio 13.2 (12.0-20.0); Calcium, Blood 8.8 mg/dL (8.5-10.1); Creatinine, Blood 0.45 mg/dL (0.40-1.00); Globulin, Blood 3.7 g/dL (2.2-4.0); Potassium, Blood 3.9 mmol/L (3.5-5.5); Total Protein, Blood 7.4 g/dL (6.4-8.2)
[2024-08-07 01:23] LABS: Amorphous Mod (0-Heavy); Appearance, Urine Hazy (Clear); Bacteria Not Seen /hpf; Color, Urine Yellow (P-Yellow); Mucus Light (0-Heavy); Red Blood Cells, Urine Not Seen /hpf (0-2); Squamous Epithelial Cells Not Seen /hpf (Few); White Blood Cells, Urine Not Seen /hpf (0-5)
[2024-08-07] MEDS ORDERED: NS 1,000 ML IV SCH ×3 (01:30→13:40)
[2024-08-07] MEDS ORDERED: Metoclopramide HCl 5MG / ML 2ML Vial IV ONE (01:30)
[2024-08-07] MEDS ORDERED: Ketorolac Tromethamine 15mg Vial IV ONE (01:30)
[2024-08-07] MEDS ORDERED: Ondansetron 4 MG TAB PO PRN (04:10)
[2024-08-07 04:35] LABS: Phosphorus, Blood 2.6 mg/dL (2.5-4.9)
[2024-08-07 05:16] LABS: Bun/Creatinine Ratio 12.2 (12.0-20.0); Calcium, Blood 8.9 mg/dL (8.5-10.1); Creatinine, Blood 0.49 mg/dL (0.40-1.00); Potassium, Blood 3.2 mmol/L (3.5-5.5)
--- NOTE | 2024-08-07 06:09 | NUR ---
PT ARRIVED FROM ED VIA GURNEY. PT WAS ABLE TO TRANSFER SELF INDEPENDENTLY FROM GURNEY TO BED AND BATHROOM. A/O X 4. ABLE TO STATE NEEDS APPROPRIATELY. WILL REPORT TO NURSE ASSUMING CARE. CALL LT IN REACH.
[2024-08-07 07:05] VITALS: BP 147/74
[2024-08-07 07:15] VITALS: BP 132/78
[2024-08-07 08:24] LABS: Bun/Creatinine Ratio 12.6 (12.0-20.0); Calcium, Blood 8.7 mg/dL (8.5-10.1); Creatinine, Blood 0.56 mg/dL (0.40-1.00); Potassium, Blood 3.3 mmol/L (3.5-5.5)
[2024-08-07] MEDS ORDERED: AmLODIPine Besylate 5 MG Tab PO SCH (09:00)
[2024-08-07] MEDS ORDERED: Potassium Chloride 20 MEQ TabCR PO ONE (09:50)
[2024-08-07] MEDS ORDERED: Mag Hydrox/AL Hydrox/Simeth 30 ML UDC PO PRN (11:55)
[2024-08-07] MEDS ORDERED: Pantoprazole Sodium 40 MG Injection IV SCH (12:00)
[2024-08-07] MEDS ORDERED: Ketorolac Tromethamine 15mg Vial IV PRN (12:05)
[2024-08-07 13:22] LABS: Bun/Creatinine Ratio 10.8 (12.0-20.0); Calcium, Blood 8.5 mg/dL (8.5-10.1); Creatinine, Blood 0.65 mg/dL (0.40-1.00); Potassium, Blood 3.8 mmol/L (3.5-5.5)
[2024-08-07 15:16] VITALS: BP 131/77
--- NOTE | 2024-08-07 18:35 | NUR ---
NO ACUTE CHANGES, CALL LIGHT WITH IN REACH, STILL REPPORTS FEELING VERY WEAK, R WRIST IV INFILTRATED, NO IV ACCESS PRESENTLY, NO NV TODAY, WILL RELAY TO PM CATALINA
[2024-08-07 20:21] VITALS: BP 122/76
[2024-08-08 03:05] VITALS: BP 138/75
--- NOTE | 2024-08-08 04:11 | NUR ---
SHIFT SUMMARY PT ALERT ORIENTED X 4 ABLE TO VERBALIZE NEEDS GETS UP IN ROOM AD BINU REMAINS ON NS AT 100. C/O HEADACHE AND INDIGESTION MEDICATED WITH TORADOL AND MAALOX WITH GOOD RELIEF. VSS ON RA SATTING AT 97%. SHES DUE TO GET LABS DONE THIS AM. SHE DID HAVE A SLIGHT TEMP THIS AM. NO NAUSEA OR VOMITING THIS SHIFT. RESTING IN BED AT THIS TIME WITH CALL LIGHT IN REACH
[2024-08-08 06:23] LABS: Bun/Creatinine Ratio 9.2 (12.0-20.0); Calcium, Blood 8.3 mg/dL (8.5-10.1); Creatinine, Blood 0.65 mg/dL (0.40-1.00); Potassium, Blood 3.7 mmol/L (3.5-5.5)
[2024-08-08 08:04] VITALS: BP 126/61
[2024-08-08] MEDS ORDERED: Enoxaparin 40 MG/0.4 ML SYR SC SCH (09:00)
[2024-08-08] MEDS ORDERED: NS 1,000 ML IV SCH (13:35)
[2024-08-08 15:29] VITALS: BP 133/88
--- NOTE | 2024-08-08 18:29 | NUR ---
PATIENT A/OX4, UP WITH SBA TO RESTROOM. TORADOL GIVENX1 TODAY TO TREAT HEADACHE. SODIUM WNL. NO NEW CONCERNS OR CHANGES THIS SHIFT. PATIENT DENIES ANY NAUSEA AND IS ABLE TO TOLERATE DIET.
[2024-08-08 20:28] VITALS: BP 116/74
--- NOTE | 2024-08-09 03:13 | NUR ---
SHIFT SUMMARY 49 YR F ADMITTED ON 08/06/24. FULL CODE. NO ACUTE CHANGES THIS SHIFT. PT HAS HAD NO C/O PAIN, DISCOMFORT, N/V THIS SHIFT. SHE STATED SHE IS FEELING MUCH BETTER. SHE IS A&O X 4 AND PLEASANT, COOPERATIVE WITH CARE. NS INFUSING @ 50. WILL CONTINUE TO MONITOR. BED IN LOW POSITION AND CALL LIGHT IN REACH.
[2024-08-09 04:12] VITALS: BP 129/77
[2024-08-09] MEDS ORDERED: Pantoprazole Sodium 40 MG Tab PO SCH (06:00)
[2024-08-09 07:06] LABS: BASOPHILS ABSOLUTE AUTO 0.03 K/mm3 (0.00-0.23); BASOPHILS PERCENT AUTO 1 % (0-2); EOSINOPHILS ABSOLUTE AUTO 0.22 K/mm3 (0.00-0.68); EOSINOPHILS PERCENT AUTO 3 % (0-6); Hematocrit 33.2 % (33.0-51.0); Hemoglobin 10.8 g/dL (11.5-16.0); IMMATURE GRAN ABSOLUTE AUTO 0.03 K/mm3 (0.00-0.10); IMMATURE GRAN PERCENT AUTO 1 % (0-1); LYMPHOCYTES ABSOLUTE AUTO 1.94 K/mm3 (0.84-5.20); LYMPHOCYTES PERCENT AUTO 30 % (21-46); MONOCYTES PERCENT AUTO 9 % (4-13); Mean Corpuscular HGB 29.3 pg (26.0-34.0); Mean Corpuscular HGB Conc 32.5 g/dL (31.5-36.5); Mean Corpuscular Volume 90 fL (80-100); Mean Platelet Volume 10.3 fL (9.1-12.4); NEUTROPHILS ABSOLUTE AUTO 3.63 K/mm3 (1.96-9.15); NEUTROPHILS PERCENT AUTO 56 % (41-73); Platelet Count 294 K/mm3 (150-400); RDW Coefficient Variation 13.9 % (11.7-14.2); RDW Standard Deviation 45.1 fL (35.1-46.3); Red Blood Cell Count 3.69 M/mm3 (3.80-5.20); White Blood Cell Count 6.45 K/mm3 (4.00-11.30)
[2024-08-09 07:20] LABS: Albumin, Blood 3.2 g/dL (3.4-5.0); Anion Gap 8 mmol/L (3-11); Blood Urea Nitrogen 7 mg/dL (8-24); Bun/Creatinine Ratio 11.7 (12.0-20.0); CO2, Blood 26 mmol/L (21-32); Calcium, Blood 7.9 mg/dL (8.5-10.1); Chloride, Blood 107 mmol/L (98-108); Glomerular Filtration Rate 111 (60-); Glucose, Blood 85 mg/dL (70-99); Phosphorus, Blood 2.6 mg/dL (2.5-4.9); Potassium, Blood 3.9 mmol/L (3.5-5.5); Sodium, Blood 137 mmol/L (136-145)
[2024-08-09 07:21] VITALS: BP 135/84
[2024-08-09] MEDS ORDERED: Acetaminophen 500 MG Tab PO PRN (08:30)
[2024-08-09] MEDS ORDERED: PANT40 PO (11:42)
[2024-08-09] MEDS ORDERED: METO10 PO (11:43)
--- NOTE | 2024-08-09 12:32 | NUR ---
PATIENT DC'D TO HOME WITH FAMILY. DC INSTRUCTIONS AND EDUCATION DISCUSSED WITH PATIENT AND COPY PROVIDED. RX MEDICATIONS FAXED TO [facility] [address]. [place] DENIES ANY FURTHER QUESTIONS OR CONCERNS.
== END 2024-08-09 12:28 | disposition home or self-care (01) | DRG 641 ==
LOC: ER 23:51 → MEDS 23:52
PROVIDERS: Family Medicine; Student in an Organized Health Care Education/Training Program; ADMIT Student in an Organized Health Care Education/Training Program
DX: E87.1 Hypo-osmolality and hyponatremia (principal); E87.6 Hypokalemia; I10 Essential (primary) hypertension; K21.9 Gastro-esophageal reflux disease without esophagitis; R51.9 Headache, unspecified; E86.1 Hypovolemia; E86.0 Dehydration; E87.8 Other disorders of electrolyte and fluid balance, not elsewhere classified; R11.2 Nausea with vomiting, unspecified; Z88.0 Allergy status to penicillin
CPT/HCPCS: 36415; 80048; 80053; 80069; 81001; 83735; 83930; 83935; 84100; 84300; 85025; 96361; 96374; 96375; 99284-25; A9270; G0378; J1650; J1885; J2470; J2765; J7030